=== PATIENT | female | born 1980 | race Hispanic/Latino ===

== ENCOUNTER 2017-01-31 10:13 | Outpatient (CLI) | payer BC ==
--- NOTE | 2017-01-31 12:36 | Ultrasound Report ---
BILATERAL DIGITAL DIAGNOSTIC MAMMOGRAM with CAD and RIGHT BREAST ULTRASOUND: 01/31/17 CLINICAL: A palpable right breast lump. COMPARISON:08/16/14 FINDINGS: The breasts are entirely fatty with a few residual bilateral upper outer fibroglandular densities. A right lower focal asymmetry is unchanged compared to the prior mammogram. No mass, architectural distortion or suspicious calcifications . No mammographic finding at a right upper outer palpable marker. Ultrasound of the right breast was performed in the area of the palpable lump and demonstrated an oval cyst relatively echogenic mass contiguous to the skin at 9 o'clock 5 cm from the nipple. It has a hypoechoic center and measures 6 x 4 x 7 mm. IMPRESSION: A probably benign 6 mm mass associated with the skin at 9 o'clock 5 cm from the nipple. This may be a benign sebaceous cyst or an area of fat necrosis. BI-RADS CATEGORY: 3 - - Probably Benign RECOMMENDATION: Clinical follow-up of the palpable area and a three month followup ultrasound of the right breast. ACR BI-RADS MAMMOGRAPHIC CODES: 0 = Needs additional imaging evaluation; 1 = Negative; 2 = Benign; 3 = Probably benign; 4 = Suspicious; 5 = Malignant; 6 = Known biopsy-proven malignancy COMMENT: 1. Dense breast tissue, i.e., adenosis, fibrocystic changes, etc., may obscure an underlying neoplasm. 2. Approximately 10% of cancers are not detected with mammography. 3. A negative mammography report should not delay biopsy if a clinically suspicious mass is present. COMMENT: Patient follow-up letters are generated by our [employer] application.
== END 2017-01-31 10:14 | disposition home or self-care (01) ==
LOC: SPVWC 10:13
PROVIDERS: ATTEND Obstetrics & Gynecology
DX: N60.01 Solitary cyst of right breast (principal); N63 Unspecified lump in breast
CPT/HCPCS: 76642; G0204; 77066

== ENCOUNTER 2017-05-20 09:17 | Outpatient (CLI) | payer BC ==
--- NOTE | 2017-05-20 11:10 | Ultrasound Report ---
Right breast ultrasound: Examination serve as a short term followup to prior examination in January 2017. A subcutaneous area of hypodensity surrounded by echodensity identified at that time is no longer visualized. The patient has a palpable area which is smaller than a BB which she indicates as not changed in the past several months and I cannot identify any sonographic abnormality at the precise area identified by the patient. Near the area there is a 3 mm echo lucency consistent with a small cyst. No other findings of significance. Impression: No significant findings. Recommendation: Clinical followup. Patient has been instructed to notify you for any changes in the palpable finding. Otherwise, age-appropriate mammogram followup recommended. BI-RADS CATEGORY: 2 = Benign ACR BI-RADS MAMMOGRAPHIC CODES: 0 = Needs additional imaging evaluation; 1 = Negative; 2 = Benign; 3 = Probably benign; 4 = Suspicious; 5 = Malignant; 6 = Known biopsy-proven malignancy COMMENT: 1. Dense breast tissue, i.e., adenosis, fibrocystic changes, etc., may obscure an underlying neoplasm. 2. Approximately 10% of cancers are not detected with mammography. 3. A negative mammography report should not delay biopsy if a clinically suspicious mass is present.
== END 2017-05-20 09:18 | disposition home or self-care (01) ==
LOC: SPVWC 09:17
PROVIDERS: ATTEND Obstetrics & Gynecology
DX: N63 Unspecified lump in breast (principal)